=== PATIENT | female | born 1940 | race Caucasian/White ===

== ENCOUNTER 2016-10-08 06:32 | Outpatient (CLI) | payer MEDICARE, BC ==
[~2016-10-08] VITALS: Ht 157.5 cm; Wt 60.3 kg
[2016-10-08 07:42] LABS: BASOPHILS 0.7 % (0-2); HEMATOCRIT 39.5 % (36.0-48.0); HEMOGLOBIN 13.3 g/dL (12-16); IMMATURE GRANULOCYTES 0.2 % (0-5); LYMPHOCYTES 13.3 % (15-50); MCH 31.4 pg (26.0-34.0); MCHC 33.7 g/dL (31.0-37.0); MCV 93.4 fL (80.0-100.0); MEAN PLATELET VOLUME 10.3 fL (7.4-10.4); MONOCYTES 8.8 % (2-11); PLATELET COUNT 344 10x3/uL (130-400); RBC 4.23 10x6/uL (4.00-5.40); RDW 13.3 % (11.5-14.5); WBC 8.5 10x3/uL (4.8-10.8)
[2016-10-08 07:57] LABS: ANION GAP 14.4 mmol/L (8-16); CALCIUM 9.5 mg/dL (8.5-10.1); CARBON DIOXIDE 27.7 mmol/L (21.0-32.0); CREATININE - SERUM 0.8 mg/dL (0.6-1.3); POTASSIUM - SERUM 4.1 mmol/L (3.5-5.1)
[2016-10-08] MEDS ORDERED: TRAZODONE HCL50 MG PO (08:29)
[2016-10-08] MEDS ORDERED: HYZAAR 50-12.51 TAB PO (08:29)
[2016-10-08] MEDS ORDERED: SPIRIVA18 MCG INH (08:30)
[2016-10-08] MEDS ORDERED: ZETIA10 MG PO (08:30)
[2016-10-08] MEDS ORDERED: CELEXA20 MG PO (08:30)
[2016-10-08] MEDS ORDERED: FLUTICASONE PRO16 GM NASAL (08:31)
[2016-10-08 08:41] VITALS: BP 125/66; Ht 157.5 cm; Wt 60.3 kg
[2016-10-08 09:11] LABS: APTT 27.8 SECONDS (22.8-39.4); INR 1.03 (0.85-1.17); PROTIME 13.4 SECONDS (11.6-15.0)
--- NOTE | 2016-10-08 17:15 | NUR ---
1415 IV DC WITH CATHER TIP INTACT
== END 2016-10-08 14:30 | disposition home or self-care (01) ==
LOC: D.OPS 06:32 → D.CT 09:00 → D.OPS 14:30
PROVIDERS: Radiology Diagnostic Radiology
DX: C34.11 Malignant neoplasm of upper lobe, right bronchus or lung (principal); Z01.812 Encounter for preprocedural laboratory examination; Z01.810 Encounter for preprocedural cardiovascular examination